=== PATIENT | female | born 1965 | race Caucasian/White ===

== ENCOUNTER → 2018-03-01 07:27 | Outpatient (CLI) | payer OTHER, SELFPAY ==
[2018-03-01 08:46] LABS: Alanine Aminotransferase 85 IU/L (9-52); Albumin 3.9 g/dL (3.5-5.0); Albumin Globulin Ratio 1.3 (1.0-2.8); Alkaline Phosphatase 261 U/L (38-126); Aspartate Aminotransferase 68 IU/L (14-36); Bilirubin Unconjugated 0.7 mg/dL (0.0-1.1); HEMOLYSIS 24 (0-50); Total Protein 6.9 g/dL (6.3-8.2)
== END ==
PROVIDERS: Visit Provider Internal Medicine Gastroenterology
DX: K74.3 Primary biliary cirrhosis (principal)
CPT/HCPCS: 36415; 80076

== ENCOUNTER → 2018-08-02 07:13 | Outpatient (CLI) | payer OTHER, SELFPAY ==
[2018-08-02 09:50] LABS: INR 0.9 (0.9-1.3)
== END ==
PROVIDERS: Visit Provider Internal Medicine Gastroenterology
DX: K74.3 Primary biliary cirrhosis (principal)
CPT/HCPCS: 36415; 85610

== ENCOUNTER → 2018-08-19 07:00 | Outpatient (CLI) | payer OTHER, SELFPAY ==
--- NOTE | 2018-08-19 | DI.US.S_ITS ---
PROCEDURE: US ABDOMEN COMPLETE INDICATIONS: PRIMARY BILIARY CIRRHOSIS TECHNIQUE: Real-time scanning was performed of the abdominal and retroperitoneal organs, with image documentation. COMPARISON: [facility], CT, ABDOMEN W&WO CONTRAST, 05/29/2013, 16:22. [facility], US, ABDOMEN COMPLETE, 12/25/2016, 8:00. FINDINGS: Liver: Coarse echotexture of the liver redemonstrated. No discrete focal mass. Gallbladder: No gallstones identified. Normal gallbladder wall. No pericholecystic fluid. Negative sonographic Burr sign. Biliary ducts: Intrahepatic bile ducts are non-dilated. Extrahepatic bile duct caliber measures 10.0 mm. Normal is 6-7 mm or less in diameter, or 10 mm or less post-cholecystectomy. Pancreas: Visualized portions of the pancreas are sonographically normal. Spleen: Spleen is normal in size and homogeneous in echotexture. Kidneys: Kidneys are normal in size and echotexture. Right kidney measures 10.0 cm long; left kidney measures 11.3 cm long. No hydronephrosis or nephrolithiasis. No solid masses. Aorta: Visualized aorta is normal in caliber at less than 3 cm. Iliacs: Proximal common iliac arteries are normal in caliber at less than 2.5 cm. IVC: Intrahepatic inferior vena cava is patent. Miscellaneous: No free abdominal fluid. IMPRESSION: 1. Coarse appearance of the liver echotexture similar to prior examination. No focal liver mass seen. Dictated by: Farooq CARR Interpreted: Jackson Cuab MD on 08/19/2018 at 8:56 Approved by: Jackson Cuba M.D. on 08/19/2018 at 10:57
== END ==
PROVIDERS: Visit Provider Internal Medicine Gastroenterology
DX: K74.60 Unspecified cirrhosis of liver (principal)
CPT/HCPCS: 76700

== ENCOUNTER 2018-09-06 09:09 | Day surgery (SDC) | payer OTHER, SELFPAY ==
[2018-09-06] VITALS (17 sets, daily range): BP systolic 93–140; BP diastolic 60–81; PULSE 64–83; RESP 12–16; TEMP 36.2–36.9; O2SAT 96–100; BMI 23.6
--- NOTE | 2018-09-06 | DI.CT.S_ITS ---
PROCEDURE: CT BIOPSY LIVER Sedation analgesia for 15 minutes. INDICATIONS: Hepatitis TECHNIQUE: The indications, alternatives, benefits, risks, and possible complications of the procedure were communicated to the patient. Informed written consent from the patient was obtained and placed in the chart. Continuous EKG and hemodynamic monitoring was started by trained personnel. The patient was brought to the CT suite and color worker spiral CT imaging was performed with localization grid. The appropriate site for percutaneous access to the biopsy target was marked, was prepped and draped sterilely, and was infused with local anaesthesia. Under CT guidance, a core biopsy trocar and needle set was advanced to the biopsy target, and specimen(s) were obtained. The trocar and needle were then removed, and the patient was sent for post-procedure monitoring. COMPARISON: None. FINDINGS: Biopsy site: Right lobe Needle: 20 gauge biopsy needle with introducer trocar. Number of passes: 3 Medications: 1% lidocaine for local anaesthesia. IV Fentanyl and Versed for conscious sedation for 15 minutes (see nursing record). Complications: None. IMPRESSION: Successful CT-guided biopsy of right hepatic lobe. Dictated by: Williams Wayne M.D. on 09/06/2018 at 13:59 Approved by: Williams Wayne M.D. on 09/06/2018 at 14:04
--- NOTE | 2018-09-06 | PATH_ITS ---
[facility] Accession Number: [id number] . 01 Material submitted: . LIVER . 01 Clinical history: . CT GUIDED NEEDLE CORE BIOPSY X3 RIGHT HEPATIC LOBE FOR CIRRHOSIS (NO MASS) . 02 Diagnosis: Liver, Needle Core Biopsy: Liver with patchy mild portal inflammation. Bile ducts present in 1 of 4 intact portal tracts; see Comment. At most fibrous portal expansion of portal tract on trichrome stain; no evidence or cirrhosis. [facility]09/13/2018 . 02 Comment: Sections are of liver with patchy mild portal inflammation consisting of lymphocytes and scattered plasma cells; there is no significant interface activity. Bile ducts are present in 1 of 4 intact portal tracts seen and focal bile ductular reaction is present. There is no lobular inflammation, and hepatocytes are unremarkable. There is no significant steatosis. There is at most fibrous portal expansion of portal tracts on trichrome stain, without evidence of cirrhosis. A reticulin stain highlights the preserved reticulin meshwork, with unremarkable trabeculae. There are no large intrahepatocytic globules of alpha-1 antitrypsin deficiency on a PAS stain with diastase. There is 1+ intrahepatocytic iron on iron stain. . Per report (slides not reviewed), a prvious liver biopsy showed very similar features ([id number], 06/30/2013; [facility], [place], [place]). Apart from ductopenia, the overall features are mild and non-specific and raise a wide differential diagnosis, including infection and drug-induced injury. The history of positive anti-mithochondrial antibodies, and clinical impression of primary biliary cirrhosis/choangitis is noted, and these features are certainly compatible with PBC if other etiologies are excluded. If PBC is clinically favored, these features are best classified as stage 2. It would appear that there has not been significant progession since the prior biopsy. . As part of routine qulity assurance, Dr. Marroquin has reviewed this case and agrees with the above interpretation. . 02 Electronically signed: . Azar Herndon MD, PhD, Pathologist NPI- [id number] . 01 Gross description: . Received in one formalin-filled container labeled with the patient's name and designated hepatic lobe, are three 0.1 cm in diameter, rizo-brewer, fragmenting, cylindrical-shaped portions of tissue which range in length from 1.0 cm to 1.6 cm. Entirely submitted in one cassette. ([id number]) /FRR . 02 Pathologist provided ICD-10: R94.5 . 02 CPT . 149905, 217936, 867052, 667369, [id number] Performed at: 01 [facility] [address] [id number] MD Maco Philippe MD Phone: [phone] Performed at: 02 [facility] [address] [place] [id number] MD Kim Marroquin MD Phone: [phone]
[2018-09-06 10:11] LABS: Hematocrit 45.6 % (36-46)
[2018-09-06 10:32] LABS: Platelet Count 116 X10^3/uL (150-400)
[2018-09-06 10:41] LABS: INR 0.9 (0.9-1.3); Prothrombin Time 10.9 SECONDS (10.1-12.7)
[2018-09-06 10:49] LABS: PTT Partial Thromboplastin Tim 33 SECONDS (26.4-36.2)
[2018-09-06] MEDS: MIDAZOLAM 2 MG/2 ML VIAL IV (11:20)
[2018-09-06] MEDS: fentaNYL 100 MCG/2 ML INJ 50 MCG IV ×2 (11:20→11:45)
[2018-09-06] MEDS: diphenhydrAMINE 50 MG/ML VIAL 25 MG IV (12:00)
--- NOTE | 2018-09-06 13:04 | SUR.PHASEII ---
pt resting quietly, lying on right side as ordered, bx site clean and dry, no redness or swelling noted.
--- NOTE | 2018-09-06 14:17 | SUR.PHASEII ---
Pt informed of lab draw at 1500 and orthstatic VS at 1530. Pt resting comfortably and drinking clears. Dressing c/d/i. Pain resolved. Report to John Guadalupe
--- NOTE | 2018-09-06 15:15 | SUR.PHASEII ---
DRESSING REMAINS DRY, NO SWELLING OR REDNESS NOTED, PT DENIES ANY PAIN AT SITE, LAB HERE FOR ORDERED STAT HCT. PT SITTING UP TOLERATING HOT TEA.
[2018-09-06 15:24] LABS: Hematocrit 44.6 % (36-46)
--- NOTE | 2018-09-06 15:40 | SUR.PHASEII ---
DR JUAREZ ([id number]) CALLED AND NOTIFIED OF STABLE VITAL SIGNS, NO BLEEDING AT SITE AND PT DENIES ANY PAIN, OK TO D/C PT HOME. LYING BP 105/79, PULSE 77 PULSE OX 97% SITTING BP 111/81 PULSE 88, PULSE OX 98% STANDING BP 108/80, PULSE 83, PULSE OX 98 %. D/C INSTRUCTIONS REVIEWED WITH PT WITH VERBALIZED UNDERSTANDING. PER DR JUAREZ, KEEP BAND AID ON SITE X2 DAYS OK TO SHOWER TOMORROW, CALL DR WITH S/S OF INFECTION, BLEEDING OR HEMATOMA.
== END 2018-09-06 17:23 | disposition home or self-care (01) ==
PROVIDERS: Radiology Diagnostic Radiology; Visit Provider Internal Medicine Gastroenterology
PROC: BF25ZZZ Computerized Tomography (CT Scan) of Liver (ICD-10-PCS; CPT 47000; principal; 2018-09-06 10:30)
DX: K74.3 Primary biliary cirrhosis (principal)
CPT/HCPCS: 47000; 77012; 85014; 85049; 85610; 85730; J1200; J2250; J3010

== ENCOUNTER → 2018-11-15 08:01 | Outpatient (CLI) | payer OTHER, SELFPAY ==
--- NOTE | 2018-11-15 | DI.MG.S_ITS ---
BILATERAL DIGITAL SCREENING MAMMOGRAM 3D/2D WITH CAD: 11/15/2018 CLINICAL: Routine screening. Comparison is made to exams dated: 10/25/2016 mammogram - [facility] and 06/13/2013 mammogram - [facility]. The tissue of both breasts is heterogeneously dense. This may lower the sensitivity of mammography. Current study was also evaluated with a Computer Aided Detection (CAD) system. No significant masses, calcifications, or other findings are seen in either breast. There has been no significant interval change. IMPRESSION: NEGATIVE There is no mammographic evidence of malignancy. A 1 year screening mammogram is recommended. This exam was interpreted at Station ID: [id number]. NOTE: For mammograms, a report in lay terms will be sent to the patient. Approximately 15% of breast malignancies will not be visualized mammographically. In the management of a palpable breast mass, a negative mammogram must not discourage biopsy of a clinically suspicious lesion. Electronically Signed By: Sole bliss/so:11/15/2018 11:19:41 letter sent: Normal Exam ACR BI-RADS Category 1: Negative [id number]
== END ==
PROVIDERS: Visit Provider Physician Assistant
DX: Z12.31 Encounter for screening mammogram for malignant neoplasm of breast (principal)
CPT/HCPCS: 77063; 77067

== ENCOUNTER 2019-11-05 20:36 | Emergency (ER) | payer OTHER, SELFPAY ==
[2019-11-05] VITALS (10 sets, daily range): BP systolic 119–138; BP diastolic 73–96; PULSE 67–78; RESP 18–24; TEMP 36.6–36.8; O2SAT 95–100
--- NOTE | 2019-11-05 20:43 | DI.RAD.S_ITS ---
PROCEDURE: XR WRIST RT MIN 3V INDICATIONS: fall with obvious deformity TECHNIQUE: 4 views of the wrist were acquired. COMPARISON: None. FINDINGS: Bones: There is an impacted, mildly displaced comminuted fracture of the distal radius with intra-articular extension. Ulna appears intact. No other areas of fracture are identified. Scaphoid view: No visualized fracture. Soft tissues: No suspicious soft tissue calcifications. IMPRESSION: Impacted, mildly displaced intra-articular distal radial fracture. Dictated by: Gloria Acharya M.D. on 11/05/2019 at 20:58 Approved by: Gloria Acharya M.D. on 11/05/2019 at 21:00
--- NOTE | 2019-11-05 20:46 | ED.UPPEXIN ---
HPI - Extremity Injury (Upper) General Chief Complaint: Extremity Injury, Upper Stated Complaint: WRIST INJURY Time Seen by Provider: 11/05/19 20:38 Source: patient and family Mode of arrival: Ambulatory Limitations: no limitations History of Present Illness HPI narrative: 54-year-old female nonsmoker with noncontributory medical history presents with a family friend and a chief complaint of significant right wrist pain with obvious deformity. She was dancing with a friend when she fell on an outstretched wrist, she felt a pop and now has significant pain, at rest and much worse with any range of motion. She denies any numbness, tingling or weakness. She states elbow and shoulder are not painful. She denies any head neck or back pain. She states that she fell because she tripped over her dance partners feet. complaint: injury to: right Onset (ago): minute(s) Handedness: right Place: home Severity: moderate Relieving factors: rest Exacerbating factors: immobilization Context: fall Associated symptoms: denies other symptoms Related Data Home Medications Medication Instructions Recorded Confirmed ibuprofen See Rx Instructions .ROUTE 09/29/16 09/06/18 .COMPLEX #0 ursodiol 800 mg PO QDAY #0 02/07/17 09/06/18 Previous Rx's Medication Instructions Recorded hydrocodone-acetaminophen 1 tab PO Q4-6H PRN #20 tab 11/05/19 Allergies Allergy/AdvReac Type Severity Reaction Status Date / Time No Known Allergies Allergy Verified 11/05/19 21:02 Review of Systems Constitutional Constitutional: Denies chills, Denies fatigue, Denies fever(s), Denies frequent falls, Denies lethargy and Denies weakness Eyes Eyes: Denies change in vision, Denies eye discharge, Denies irritation and Denies loss of vision ENT Ears, Nose, Mouth, and Throat: Denies change in voice, Denies dizziness, Denies neck pain, Denies sore throat and Denies throat swelling Cardiovascular Cardiovascular: Denies chest pain, Denies irregular heart rhythm, Denies lightheadedness, Denies palpitations, Denies dyspnea, Denies dyspnea on exertion and Denies orthopnea Respiratory Respiratory: Denies cough, Denies dyspnea, Denies dyspnea on exertion and Denies wheezing Gastrointestinal Gastrointestinal: Denies abdominal pain, Denies change in bowel habits, Denies diarrhea, Denies nausea and Denies vomiting Genitourinary Genitourinary: Denies hematuria, Denies flank pain, Denies urinary incontinence and Denies urinary urgency Musculoskeletal Musculoskeletal: Denies back pain, Reports joint swelling, Reports limited range of motion, Denies muscle weakness, Denies neck pain, Denies numbness and Denies tingling Integumentary/Breasts Skin/Breast: Denies pruritus, Denies erythema, Denies rash and Denies wounds Neurologic Neurologic: Denies behavioral changes, Denies confusion, Denies dizziness, Denies frequent falls, Denies loss of vision, Denies numbness, Denies tingling and Denies weakness Psychiatric Psychiatric: Denies anxiety, Denies behavioral changes, Denies confusion, Denies depression, Denies homicidal ideation and Denies suicidal ideation Endocrine Endocrine: Denies fatigue, Denies flushing and Denies palpitations Hematologic/Lymphatic Hematologic/Lymphatic: Denies easy bruising Allergic/Immunologic Allergic/Immunologic: Denies urticaria, Denies throat swelling and Denies wheezing Patient History Social History household members: none Smoking Status: Former smoker Exam Narrative Exam Narrative: GENERAL: [54] year old patient appears stated age. Well-nourished, well-developed patient, in mild distress. Tearful, holding right wrist HEAD: Atraumatic. Normocephalic. EYES: Pupils equal round and reactive. Extraocular motions intact. No scleral icterus. No injection or drainage. ENT: Nose without bleeding, purulent drainage. Throat without erythema, tonsillar hypertrophy or exudate. Airway patent. NECK: Trachea midline. Non tender CARDIOVASCULAR: Regular rate and rhythm without murmurs, gallops, or rubs. RESPIRATORY: Clear to auscultation. Breath sounds equal bilaterally. No wheezes, rales, or rhonchi. GASTROINTESTINAL: Abdomen soft, non-tender, nondistended. EXTREMITIES: Obvious deformity to right wrist, closed, isolated and neurovascularly intact. BACK: Nontender without deformity or crepitance. No flank tenderness. NEURO: AOx3. SKIN: No rash or erythema of visible areas Initial Vital Signs Initial Vital Signs: Vital Signs Temperature 97.9 F 11/05/19 20:45 Pulse Rate 76 11/05/19 20:45 Respiratory Rate 20 11/05/19 20:45 Blood Pressure 132/87 11/05/19 20:45 Pulse Oximetry 96 11/05/19 20:45 Procedures Orthopedic Fracture Reduction Fracture #1: Time Out Performed: Yes Side: right Fracture Reduction Location: radius Analgesia: procedural sedation Technique: direct manipulation and traction/counter-traction Post Reduction X-rays Demonstrate: anatomical reduction Post-reduction neuro exam: intact Post-reduction vascular exam: intact Splint Applied: Yes Patient Tolerated Procedure: Well Orthopedic Splinting/Casting Injury #1: Side: right Upper Extremity Injury Location: wrist Upper Extremity Immobilizer: sling/shoulder immobilizer and sugar tong splint Post splinting neuro exam: intact Post splinting vascular exam: intact Placed by: Provider Procedural Sedation Consent signed: Yes Time out performed: Yes Indication: fracture/dislocation reduction ASA Class: II Mallampati Airway Classification: Class II Time of Last PO Intake: 20:00 Preparation: monitor technician applied, pulse oximeter, capnometry used, supplemental O2 applied, suction/airway equipment at bedside and IV secured IV Propofol dose (mg): 100 Intraservice time/total sedation time (min): 10 ED Sedation Level: Moderate (Concious) Patient Tolerated Procedure: Well Course Orders Ordered: ED Orders 11/05/19 20:43 XR wrist RT min 3V Stat 11/05/19 21:32 XR wrist RT 2V Stat Discontinued Medications Hydrocodone Bitart/Acetaminophen (Vicodin 5/325 Prepack) 1 bottle MISC SEEINSTR ONE Stop: 11/05/19 21:54 Last Admin: 11/05/19 22:06 Dose: 1 bottle Documented by: TOMAS Propofol (Diprivan) 70 mg 1 mg/kg (70 mg) IV NOW ONE Stop: 11/05/19 21:00 Last Admin: 11/05/19 21:25 Dose: 70 mg Documented by: TOMAS Consultations Consultation #1: orthopedics consulted (Henrique). We have discussed case, she has reviewed imaging and is in agreement with plan to DC with splint, pain meds, and follow up instructions for [facility]. Vital Signs Vital signs: Vital Signs - 8 hr 11/05/19 20:45 11/05/19 21:23 11/05/19 21:29 Temperature 97.9 F 98.2 F Pulse Rate 76 67 78 Pulse Rate [Right Radial] Respiratory Rate 20 19 24 Blood Pressure 132/87 Blood Pressure [Left Arm] 125/86 136/90 Pulse Oximetry 96 100 98 11/05/19 21:34 11/05/19 21:37 11/05/19 21:39 Temperature Pulse Rate 75 71 Pulse Rate [Right Radial] 73 Respiratory Rate 18 24 Blood Pressure Blood Pressure [Left Arm] 138/96 H Pulse Oximetry 100 99 11/05/19 21:44 11/05/19 21:50 11/05/19 21:56 Temperature Pulse Rate 72 71 69 Pulse Rate [Right Radial] Respiratory Rate 23 19 19 Blood Pressure Blood Pressure [Left Arm] 119/73 124/85 126/87 Pulse Oximetry 100 95 99 11/05/19 21:57 Temperature Pulse Rate Pulse Rate [Right Radial] Respiratory Rate Blood Pressure Blood Pressure [Left Arm] 124/77 Pulse Oximetry MDM - Extremity Injury (Upper) Lab Data Labs: Point of Care Testing Test Results Not applicable Imaging Data Extremity x-ray #1: Radiologist's Impression: [address] [address] XRay Report Signed Patient: Bessie Hernandez [facility]#: [id number] : 1965Acct:[id number] Age/Sex: 54 / FDate of Service: 11/05/19 Loc: ED Accession Number: [id number] Procedure: XR wrist RT min 3V Ordering Provider: Jovani Villalpando D.O. PROCEDURE: XR WRIST RT MIN 3V INDICATIONS: fall with obvious deformity TECHNIQUE: 4 views of the wrist were acquired. COMPARISON: None. FINDINGS: Bones: There is an impacted, mildly displaced comminuted fracture of the distal radius with intra-articular extension. Ulna appears intact. No other areas of fracture are identified. Scaphoid view: No visualized fracture. Soft tissues: No suspicious soft tissue calcifications. IMPRESSION: Impacted, mildly displaced intra-articular distal radial fracture. Dictated by: Gloria Acharya M.D. on 11/05/2019 at 20:58 Approved by: Gloria Acharya M.D. on 11/05/2019 at 21:00 Discharge Plan Departure Patient Disposition: Home Clinical Impression: Distal radius fracture, right Qualifiers: Encounter type: initial encounter Fracture type: closed Fracture morphology: unspecified fracture morphology Qualified Code(s): S52.501A - Unspecified fracture of the lower end of right radius, initial encounter for closed fracture Discharge Date/Time: 11/05/19 22:20 Instructions: DI for Wrist Fracture Activity Restrictions/Additional Instructions: *You have been diagnosed with [right distal radius fracture] *What to do: *Take medications as directed *Follow up with [facility], call tomorrow morning for an appointment. Let them know you were seen in the Emergency Department and that we ask that you be seen in follow up *Return to ER if you should have any new, worsening or concerning symptoms, such as [increasing pain, numbness, tingling or weakness of your fingers hand or arm.] Splint Care: Keep splint clean and dry. Elevated affected body part to decrease swelling. OK to use ice pack on the affected body part. Use for 15-20 minutes each time, for 5-6x per day. If you develop worsening pain, numbness, tingling, discoloration of the affected body part, loosen the splint by loosening the REID wrap, and either see your doctor for an urgent re-assessment, or return to the Emergency Department. Return to the Emergency Department for any new or worsening symptoms. Prescriptions: New hydrocodone-acetaminophen 5-325 mg tablet 1 tab PO Q4-6H PRN (Reason: pain) Qty: 20 RF: 0 No Action ibuprofen 200 mg Tablet See Rx Instructions .ROUTE .COMPLEX Qty: 0 RF: 0 ursodiol 500 MG tablet 800 mg PO QDAY Qty: 0 RF: 0 Referrals: Yi Duenas MD [Physician] -
[2019-11-05] MEDS: propofoL 200 MG/20 ML VIAL 70 MG IV (21:25)
--- NOTE | 2019-11-05 21:32 | DI.RAD.S_ITS ---
PROCEDURE: XR WRIST RT 2V INDICATIONS: post-reduction TECHNIQUE: 2 views of the wrist were acquired. COMPARISON: [facility], , XR WRIST RT MIN 3V, 11/05/2019, 20:43. FINDINGS: Bones: There has been interval reduction of previous distal radial fracture. There is improved anatomic alignment. Intra-articular extension is again noted. Scaphoid view: Not obtained. Soft tissues: No suspicious soft tissue calcifications. IMPRESSION: Reduction with improved anatomic alignment of intra-articular distal radial fracture. Dictated by: Gloria Acharya M.D. on 11/05/2019 at 22:00 Approved by: Gloria Acharya M.D. on 11/05/2019 at 22:01
[2019-11-05] MEDS: HYDROCODONE/ACET 5/325 PREPACK 1 BOTTLE MISC (22:06)
== END 2019-11-05 22:20 | disposition home or self-care (01) ==
PROVIDERS: Emergency Provider Emergency Medicine
DX: S52.501A Unspecified fracture of the lower end of right radius, initial encounter for closed fracture (principal); W01.0XXA Fall on same level from slipping, tripping and stumbling without subsequent striking against object, initial encounter
CPT/HCPCS: 25565; 73100; 73110; 99152; 99284; 99285; J2704

== ENCOUNTER 2019-11-07 10:21 | Day surgery (SDC) | payer OTHER, SELFPAY ==
[2019-11-07] VITALS (14 sets, daily range): BP systolic 111–142; BP diastolic 72–90; PULSE 64–99; RESP 10–16; TEMP 36.1–37.1; O2SAT 90–97; BMI 23.6
[2019-11-07] MEDS: LACTATED RINGERS 1,000 ML 42 ML IV ×2 (10:48→15:26)
--- NOTE | 2019-11-07 12:40 | PM.PREOP ---
Pre-operative Note Interval Note History & Physical reviewed/Exam performed by Physician: Yes Changes to H&P: No
--- NOTE | 2019-11-07 12:48 | PM.OP.1 ---
Operative Date/Time/Diagnoses Date of procedure: 11/07/19 Time of procedure: 13:20 Pre-op diagnosis: Right distal radius fracture intra-articular Post-op diagnosis: same Procedure & Clinicians Procedure: Open reduction internal fixation intra-articular distal radius fracture right to fragment. CPT code 37326 Same procedure as scheduled: Yes Indications: Patient is a 54-year-old [id number] female that fell on outstretched hand 2 days prior. He had immediate pain deformity. She was found have a comminuted intra-articular distal radius fracture. She works for herself and in order to restore volar angulation alignment reduce the risk of posttraumatic arthritis and facilitate early range of motion she was indicated for open reduction internal fixation. The risks and benefits of the procedure have been discussed with the patient even opportunity to ask questions. The risks of surgery include but are not limited to infection, malunion, nonunion, persistence of pain, damage to nerves and blood vessels, posttraumatic arthritis, DVT, PE, cardiopulmonary complications and . The patient expressed a thorough understanding of the risks and benefits of surgery and has elected to proceed. Consent was signed in the office. Surgeon: Yi Duenas Click Yes if Unassisted: Yes Anesthesia Type: General, Peripheral nerve block and Local Operative Notes Findings: Displaced intra-articular distal radius fracture Closure Type: primary Specimen(s): none sent Prosthetic devices, grafts, tissues, transplants, or devices: Acumed volar locking distal radius plate, right Applied: other (Volar splint) Estimated Blood Loss (mL): 10 Blood products transfused: none Tourniquet time (min): 50 Procedure in detail: Patient sustained a displaced distal radius fracture was indicated for operative reduction fixation to prevent malunion and prolonged function, loss of motion, wrist arthritis. The risks benefits and alternatives to procedure were discussed at length with the patient expressed understanding. These included but were not limited to bleeding, infection, damage to nerves, prominent hardware, pain, malunion, nonunion, blood clot, pulmonary embolism, and cardiovascular risk associated with general anesthesia. Consent was signed in the office. The patient was seen in the site of surgery was marked in the preoperative area. The patient was then brought to the operating room placed on the operative table in the supine position. Hand table was placed on the operative side. General anesthesia was administered. SCDs were 1 the legs and all bony prominence were padded. A well-padded radial keel tourniquet was placed. A formal time-out procedure was called confirming the patient's side and site of surgery administration of preoperative antibiotics and presence of consent. All agreed. The operative extremity was prepped and draped in the standard sterile fashion. An Esmarch was used for exsanguination and the brachial tourniquet was raised to 250 mm of mercury. Standard FCR approach to the wrist was drawn in the incision made. The FCR was exposed. The sheath was opened and the tendon was retracted ulnar protect the palmar cutaneous branch of the median nerve. Floor of the FCR was opened to expose the deep muscles. The FPL was retracted ulnar and the pronator quadratus was released from the radial border and reflected ulnar to expose the distal radius and distal fracture. Fracture was disimpacted and clean. The fracture was reduced with traction flexion ulnar deviation. A 054 K-wire was advanced percutaneously from the radial styloid to the metaphysis to hold the reduction. Reduction was checked fluoroscopy and radial inclination tilt was recreated. Three hole standard Accu Med to volar locking plate was selected and positioned and provisionally fixed with K-wires. Once this was satisfactory, nonlocking 3 5 screws placed in the oblong hole and secured. Distal screws were then placed 1st with nonlocking screws followed by locking pegs. These were placed carefully not to penetrate the dorsal cortex. Once this was completed and checked for prominence the final shaft screws were placed. Again with care to avoid prominence. Final intraoperative images were obtained reviewed demonstrating no evidence of hardware prominence. Wrist motion was checked and was full and maintained and stable DRUJ. The wound was then irrigated and closed in layers. Hemostasis was achieved and the tourniquet was released prior to closing. Three 0 Vicryl was used deep and subcutaneous and 3 O nylon in the skin. Sterile dressings with a volar splint were applied. There no immediate complications. Surgical counts were correct. The patient tolerated the procedure well was taken recovery room. Complications: none Post-operative Condition: stable Disposition: PACU Plan for aftercare: 2 lb weight limit. May type or use hand for ADLs. Keep the splint in place. Follow-up in 2 weeks for suture removal. Then initiate hand therapy. Continue to 2-5 lb weight limit through 9 weeks postop then may strengthen as tolerated.
[2019-11-07] MEDS: CEFAZOLIN 2 GM/100 ML FROZ.PIGGY IV (13:08)
--- NOTE | 2019-11-07 13:47 | SUR.OPER ---
Supine on padded OR bed, head on pillow, left arm secured on padded arm board at <90 degrees abduction, Right arm positioned on padded arm table, legs uncrossed, safety belt at thigh, pillow under knees, gel pad to heels.
[2019-11-07] MEDS: BUPIVACAINE 0.25% W/ EPI 30 ML VIAL INJ (14:01)
[2019-11-07] MEDS: fentaNYL 100 MCG/2 ML INJ IV ×2 (15:04→15:17)
[2019-11-07] MEDS: HYDROMORPHONE 2 MG INJ IV ×3 (15:07→15:44)
[2019-11-07] MEDS: ONDANSETRON 4 MG/2 ML INJ IV ×2 (15:10→15:48)
[2019-11-07] MEDS: OXYCODONE/ACETAMINOPHEN 5/325 TABLET 1 TAB PO (15:29)
--- NOTE | 2019-11-07 16:10 | SUR.PHASEI ---
Patient states that her pain is down from 10/10 to 8/10. Patient c/o being hot. VSS. Mild nausea. Cool cloth to forehead and back of neck. Patient denies diabetes but blood sugar check 106 at this time. Removed some blankets for comfort and removed SCDs to cool patient off.
--- NOTE | 2019-11-07 16:19 | SUR.PHASEI ---
Patient states pain is still 8/10 but does not want any more pain medication at this time.
--- NOTE | 2019-11-07 16:44 | SUR.PHASEII ---
pt arrived to phase II via stretcher. pt sitting up, alert and oriented. pt significant other brought to bedside. Reviewed dc instructions with pt and pt significant. No further questions or concerns. pt c/o nausea when arrived to phase II. pt vomitted approx 100 cc of bile colored emesis. pt reported after emesis, she feels better. pt requesting to rest longer prior to dc. bed in lowest position and call light given to pt. pt appears comfortable at this time.
--- NOTE | 2019-11-07 17:27 | SUR.PHASEII ---
Patient with emesis prior to discharge but ready to go home. RX given to family prior to discharge. Instructed patient to take pain medication as directed but to attempt a small amount of food first. Escorted patient to car via wheelchair.
== END 2019-11-07 17:30 | disposition home or self-care (01) ==
PROVIDERS: Referring Provider Orthopaedic Surgery Foot and Ankle Surgery; Visit Provider Orthopaedic Surgery Foot and Ankle Surgery
PROC: (CPT 25608; principal; 2019-11-07 12:00)
DX: S52.571A Other intraarticular fracture of lower end of right radius, initial encounter for closed fracture (principal); K74.3 Primary biliary cirrhosis; W01.0XXA Fall on same level from slipping, tripping and stumbling without subsequent striking against object, initial encounter; Y93.41 Activity, dancing
CPT/HCPCS: 25608; J0690; J1100; J1170; J1885; J2250; J2405; J2704; J3010

== ENCOUNTER → 2020-04-14 07:38 | Outpatient (CLI) | payer OTHER, SELFPAY ==
--- NOTE | 2020-04-14 | DI.RAD.S_ITS ---
PROCEDURE: FL WRIST INJECTION MR/CT RT INDICATIONS: R/O SL ligament tear TECHNIQUE: After informed consent had been obtained, the wrist was examined fluoroscopically, and a site chosen for injection of the radiocarpal compartment from a dorsal approach. Skin was prepped and draped in a sterile fashion and 1% lidocaine infiltrated from the skin down to the articular surface. A hypodermic needle was then introduced into the articular space and a modest amount of contrast medium was instilled confirming intra-articular needle tip placement. This was followed by approximately 4 mL of a dilute gadolinium solution. Needle was removed and dressing was applied. The patient experienced no complications throughout the procedure and left the fluoroscopic suite in no apparent distress. FINDINGS: fluoroscopic spot image demonstrates intra-articular location to injected iodinated contrast. IMPRESSION: Successful fluoroscopic-guided administration of dilute Gadolinium solution for wrist MR arthrogram. Dictated by: Williams Wayne M.D. on 04/14/2020 at 10:35 Approved by: Williams Wayne M.D. on 04/14/2020 at 10:36
--- NOTE | 2020-04-14 | DI.MRI.S_ITS ---
PROCEDURE: MR WRIST RT W CON INDICATIONS: R/O SL ligament tear TECHNIQUE: After the administration of 3-4 mL of dilute intra-articular Gadolinium contrast into the radiocarpal compartment, coronal T1 spin echo with fat saturation and T2 fast spin echo with fat saturation, axial T1 spin echo and T2 fast spin echo with fat saturation, sagittal T1 spin echo with and without fat saturation through the wrist. COMPARISON: None. FINDINGS: Image quality: Suboptimal due to hardware artifact , and failure of fat suppression. Bones and cartilage: Fracture deformity of the distal radius, status post plate and screw fixation. No definite focal bone marrow edema . There is marked widening of the scapholunate interval measuring 8 mm, with heterogeneous amorphous signal changes present in the expected location of the scapholunate ligament, likely reflecting subacute or chronic tear with subsequent scarring. No definite gadolinium signal intensity seen within the midcarpal compartment. The lunotriquetral ligament appears grossly intact. There is irregular signal change at the site of the TFCC central disc and radial attachment in keeping with degenerative or posttraumatic tear. There is associated gadolinium signal intensity seen within the distal radioulnar joint. Diffuse carpal degenerative spurring and sclerosis. Partial-thickness loss of the proximal lunate articular cartilage, and distal ulnar cartilage. Areas of full-thickness articular cartilage loss seen at the radioscaphoid and radiolunate articulation. Tendons and soft tissues: The carpal tunnel structures appear normal, including the median nerve. The ulnar nerve appears normal within Guyon's canal. Extensor tendons appear grossly intact.. No soft tissue ganglion cysts. IMPRESSION: Postsurgical and degenerative changes as detailed above, with hardware susceptibility artifact due to distal radial plate and screw fixation. Widening of the scapholunate interval, with heterogeneous signal change in the region of the scapholunate ligament. 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 Of note, no definite gadolinium leakage into the midcarpal compartment probably related to subsequent scarring and fibrosis. TFCC tear at the central disc and radial attachment with associated gadolinium leakage into the distal radioulnar joint. Suboptimal evaluation due to hardware artifact however there is partial-thickness loss of the proximal lunate articular cartilage, and distal ulnar cartilage. Areas of full-thickness articular cartilage loss seen at the radioscaphoid and radiolunate articulation. Dictated by: Williams Wayne M.D. on 04/14/2020 at 9:18 Approved by: Williams Wayne M.D. on 04/14/2020 at 9:46
== END ==
PROVIDERS: Referring Provider Orthopaedic Surgery Foot and Ankle Surgery; Visit Provider Orthopaedic Surgery Foot and Ankle Surgery
DX: S52.571D Other intraarticular fracture of lower end of right radius, subsequent encounter for closed fracture with routine healing (principal); S63.591A Other specified sprain of right wrist, initial encounter
CPT/HCPCS: 20605; 73222; 77002

== ENCOUNTER → 2020-06-07 07:37 | Outpatient (CLI) | payer OTHER, SELFPAY ==
[2020-06-07 08:35] LABS: Add Manual Diff / Slide Review NO; Basophils Absolute Auto 0 /uL (0-100); Basophils Percent Auto 0.8 % (0-2); Eosinophils Absolute Auto 100 /uL (0-450); Eosinophils Percent Auto 2.3 % (2-4); Hematocrit 40.5 % (36-46); Hemoglobin 13.7 g/dL (12.0-16.0); Lymphocytes Absolute Auto 1000 /uL (1100-4500); Lymphocytes Percent Auto 27.6 % (25-40); Mean Corpuscular HGB Conc 33.9 % (30-36); Mean Corpuscular Hemoglobin 29.2 PG (26-34); Mean Corpuscular Volume 86.3 fL (80-100); Monocytes Absolute Auto 400 /uL (0-900); Monocytes Percent Auto 9.7 % (3-14); Neutrophils Absolute Auto 2200 /uL (1500-7000); Neutrophils Percent Auto 59.6 % (50-75); Platelet Count 100 X10^3/uL (150-400); Red Blood Cell Count 4.69 X10^6/uL (4.0-5.2); Red Cell Distribution Width 14.1 % (11.6-14.8); White Blood Cell Count 3.7 X10^3/uL (4.5-11.0)
[2020-06-07 08:56] LABS: Alanine Aminotransferase 83 IU/L (<35); Albumin Globulin Ratio 1.2 (1.0-2.8); Alkaline Phosphatase 263 U/L (38-126); Aspartate Aminotransferase 58 IU/L (14-36); Bilirubin Total 0.5 mg/dL (0.2-1.3); Bilirubin Unconjugated 0.4 mg/dL (0.0-1.1); Globulin 3.4 g/dL (1.7-4.1); HEMOLYSIS < 15 (0-50); Total Protein 7.4 g/dL (6.3-8.2)
== END ==
PROVIDERS: Referring Provider Internal Medicine Gastroenterology; Visit Provider Internal Medicine Gastroenterology
DX: K74.3 Primary biliary cirrhosis (principal)
CPT/HCPCS: 36415; 80076; 85025

== ENCOUNTER → 2020-07-12 13:17 | Outpatient (CLI) | payer OTHER, SELFPAY ==
[2020-07-12 14:36] LABS: COVID19 -Nasal RAPID Negative (Negative)
== END ==
PROVIDERS: Visit Provider Physician Assistant
DX: Z11.59 Encounter for screening for other viral diseases (principal)
CPT/HCPCS: 87635

== ENCOUNTER 2020-07-15 06:29 | Day surgery (SDC) | payer OTHER, SELFPAY ==
[2020-07-13 09:43] VITALS: BMI 24.9
[2020-07-15] VITALS (11 sets, daily range): BP systolic 101–128; BP diastolic 57–78; PULSE 67–107; RESP 11–21; TEMP 36.1–36.7; O2SAT 91–98; BMI 25.0
[2020-07-15] MEDS: LACTATED RINGERS 1,000 ML 42 ML IV ×2 (07:20→09:34)
[2020-07-15] MEDS: CEFAZOLIN 2 GM/100 ML FROZ.PIGGY IV (07:41)
--- NOTE | 2020-07-15 07:44 | PM.PREOP ---
Pre-operative Note COVID-19 COVID-19 status: Negative Result date/Date tested (Pos, Neg/Pending): 07/12/20 Interval Note History & Physical reviewed/Exam performed by Physician: Yes Changes to H&P: No
--- NOTE | 2020-07-15 08:16 | SUR.OPER ---
Supine on padded OR bed, head on pillow, left arm secured on padded arm boards at <90 degrees abduction,right arm draped free on black armtable, legs uncrossed, safety belt at thigh, tape over blanket over lower legs.
[2020-07-15] MEDS: BUPIVACAINE 0.5% W/ EPI (PF) 30 ML VIAL INJ (08:25)
--- NOTE | 2020-07-15 09:49 | PM.OP.1 ---
Operative Date/Time/Diagnoses Date of procedure: 07/15/20 Time of procedure: 08:00 Pre-op diagnosis: Right distal radius fracture status post open reduction internal fixation Right scapholunate ligament rupture Post-op diagnosis: same Procedure & Clinicians Procedure: Right scapholunate ligament reconstruction. Removal of right distal radius plate. Right wrist Flexor tendon tenolysis. Right capsular release wrist Same procedure as scheduled: Yes Indications: Patient is status post a fall resulting in a distal radius fracture as well as a scapholunate injury. Patient developed wrist stiffness and dysfunction due to the scapholunate rupture. Surgeon: Eren August [employer] Car Mechanic: Marleni Guerin Anesthesia Type: General Operative Notes Findings: Healed distal radius fracture. No sign of any intra-articular screws. Complete rupture of the scapholunate ligament with significant diastasis but no sign of any carpal collapse. No sign of any significant arthritic changes to the radiocarpal joint. Closure Type: primary Specimen(s): none sent Applied: implant(s) (Arthrex suture anchors x5. Single K-wire) Estimated Blood Loss (mL): 10 Blood products transfused: none Tourniquet time (min): 94 Procedure in detail: On date of service, patient was met in the holding area where his operative site was signed and witnessed by the OR staff. The surgery is once again discussed with the patient in remaining questions or concerns he had were answered fully. Patient was taken back to the operating theater and placed on the operating table in a supine position. Great care was taken to ensure that all bony prominences were appropriately padded. A well-padded tourniquet was placed up along the upper extremity. Time-out was performed verifying patient's name, procedure, and operative site. The limb was prepped and draped in the normal sterile fashion. An Esmarch was used to exsanguinate the limb the tourniquet was turned up to 250 mm of mercury. Longitudinal incision was made. The incision was ulnar to the Cesario's tubercle. It was centered over the radiocarpal joint. Fifteen blade was used to incise through skin and fascial tissue. Sharp dissection was continued with a 15 blade until the extensor mechanism was identified. Branches of the superficial radial nerve were identified and protected as well as branches coming off ulnarly. Once we had the extensor mechanism identified and was split allowing a release of the EPL tendon. This was also done ulnarly opening up 4th extensor compartment and then done radially opening up the 2nd extensor compartment. This allowed us to retract the extensor tendons. We next took a small strip of tendon tissue from the ECR be which was then whip stitched and then set aside to be used later. Next, the radiocarpal joint was opened preserving the carpal ligaments. This gave us good visualization of the scapholunate interval. There was a complete rupture to the scapholunate ligament. But no sign of any radiocarpal arthritic process. K-wire was placed in to the scaphoid and 1 into the lunate and the scapholunate interval was reduced. There was quite a bit of flexion of the scaphoid which was reduced as well as extension of the lunate. These 2 K-wires were then held together to close down any diastasis. Another K-wire was placed between the scaphoid and the capitate to keep it from falling back into flexion. Next, 3 guidewires were placed 1 in the lunate and 2 in the scaphoid 1 by the scapholunate interval and then 1 very distally. C-arm used to verify reduction of the scapholunate interval as well as guidewire positioning. Once we were satisfied with the positioning cannulated drill was used to drill over the 3 guidewires. The bony hole tunnels were then copiously irrigated removing any remaining tissue. We then turned our attention back to our tendon graft. This plus suture tape was tenodesed into the 1st hole in the scaphoid. Then under tension this was then placed into the 2nd hole into the lunate going across the scapholunate interval using the labral tape as well as the graft providing a solid repair of the scapholunate interval. Next, the tendon and suture material were then brought up to the distal hole into the scaphoid and tenodesed there to once again help keep the scaphoid from falling into flexion. C-arm was brought in to verify maintenance of reduction. The 2 reducing K-wires were removed and there was no gapping at the scapholunate interval once those K-wires were removed. We were able to flex and extend the wrist with no abnormal motion of the scapholunate interval been no sign of any diastasis. There was good tightness of the graft in the suture between the scapholunate interval but some loosening between the lunate and the distal scaphoid. Due to this fact it was felt that the repair needed to be reinforced. More proximally 2 additional drill holes were made 1 in the lunate 1 the scaphoid. And the labral tape was used to reinforce the scapholunate ligament resulting in continued closure of the scapholunate ligament. This provided Good signs of a solid repair of the scapholunate interval. The wound was then copiously irrigated. The capsule was closed and repaired using 3-0 FiberWire. The extensor mechanism was closed with Vicryl recreating the 4th extensor compartment as well as the 3rd and 2nd extensor compartments. The rest of the wound was closed in layered fashion. We then turned our attention to the distal radius fracture. Previous volar incision was reopened using a 15 blade. Fifteen blade was used to incise the skin and fascial tissue. Sharp dissection was continued until the FCR tendon identified. The floor of the FCR tendon was opened allowing us to retract the flexor tendons given his good visualization of plate. There was quite a bit of scarring of the flexor tendons to the plate. Due to this fact and extensive flexor tenolysis was performed freeing up flexor tendons from the plate as well as the surrounding tissue. Once the flexor tendons were completely free the screws in plate was then removed. This allowed us to remove the plate. Patient still is demonstrating stiffness in extension but had full motion in flexion. Slight partial capsular release was performed allowing us to improve the overall wrist extension. The wound was copiously irrigated then closed in a layered fashion. Patient's hand and arm was cleaned dried and dressed. Patient was placed into a splint and taken to the PACU in stable condition. Complications: none Post-operative Condition: stable Disposition: PACU Plan for aftercare: Patient will be immobilized for a total of 6 weeks. No restrictions of range of motion of the fingers.
[2020-07-15] MEDS: fentaNYL 100 MCG/2 ML INJ IV ×4 (09:57→10:25)
[2020-07-15] MEDS: OXYCODONE/ACETAMINOPHEN 5/325 TABLET 1 TAB PO (10:11)
[2020-07-15] MEDS: ONDANSETRON 4 MG/2 ML INJ IV ×2 (10:13→10:33)
== END 2020-07-15 11:48 | disposition home or self-care (01) ==
PROVIDERS: Referring Provider Orthopaedic Surgery; Visit Provider Orthopaedic Surgery
PROC: (CPT 25320; principal; 2020-07-15 07:45)
DX: M25.331 Other instability, right wrist (principal); S52.571D Other intraarticular fracture of lower end of right radius, subsequent encounter for closed fracture with routine healing; S63.591A Other specified sprain of right wrist, initial encounter; W19.XXXD Unspecified fall, subsequent encounter
CPT/HCPCS: 25320; 20680; 25295; J0690; J1100; J2250; J2405; J2704; J3010

== ENCOUNTER → 2020-10-22 08:35 | Outpatient (CLI) | payer OTHER, SELFPAY ==
[2020-10-22 09:57] LABS: Add Manual Diff / Slide Review NO; Basophils Absolute Auto 0 /uL (0-100); Basophils Percent Auto 1.1 % (0-2); Eosinophils Absolute Auto 100 /uL (0-450); Eosinophils Percent Auto 2.7 % (2-4); Hematocrit 41.4 % (36-46); Hemoglobin 14.1 g/dL (12.0-16.0); Lymphocytes Absolute Auto 1200 /uL (1100-4500); Lymphocytes Percent Auto 30.1 % (25-40); Mean Corpuscular Volume 85.4 fL (80-100); Monocytes Absolute Auto 400 /uL (0-900); Monocytes Percent Auto 9.1 % (3-14); Neutrophils Absolute Auto 2200 /uL (1500-7000); Platelet Count 103 X10^3/uL (150-400); Red Blood Cell Count 4.85 X10^6/uL (4.0-5.2); Red Cell Distribution Width 14.2 % (11.6-14.8); White Blood Cell Count 3.9 X10^3/uL (4.5-11.0)
[2020-10-22 10:08] LABS: Prothrombin Time 11.1 SECONDS (10.1-12.7)
[2020-10-22 10:49] LABS: Alanine Aminotransferase 76 IU/L (<35); Albumin 4.2 g/dL (3.5-5.0); Albumin Globulin Ratio 1.3 (1.0-2.8); Alkaline Phosphatase 311 U/L (38-126); Aspartate Aminotransferase 60 IU/L (14-36); BUN Creatinine Ratio 24.1 (6-22); Bilirubin Total 0.8 mg/dL (0.2-1.3); Blood Urea Nitrogen 13 mg/dL (7-17); Calcium 10.3 mg/dL (8.4-10.2); Carbon Dioxide 30 mmol/L (22-32); Chloride 102 mmol/L (98-107); Estimated Glomerular Filt Rate > 60.0 mL/min (>60); Gamma Glutamyl Transpeptidase 249 U/L (12-43); Globulin 3.3 g/dL (1.7-4.1); Glucose 101 mg/dL (70-100); HEMOLYSIS < 15 (0-50); Potassium 4.5 mmol/L (3.4-5.1); Sodium 135 mmol/L (137-145); Total Protein 7.5 g/dL (6.3-8.2)
[2020-10-24 16:13] LABS: Vitamin A 46.9 ug/dL (20.1-62.0)
== END ==
PROVIDERS: PCP Physician Assistant; Referring Provider Physician Assistant; Visit Provider Physician Assistant
DX: K74.3 Primary biliary cirrhosis (principal)
CPT/HCPCS: 36415; 80053; 81596; 82306; 82977; 84590; 85025; 85610

== ENCOUNTER → 2020-11-10 12:49 | Outpatient (CLI) | payer OTHER, SELFPAY ==
[2020-11-10] MEDS: COVID-19 VACC, Ad26(JANSSEN)/PF 0.5 ML IM (13:08)
== END ==
PROVIDERS: PCP Physician Assistant; Visit Provider Internal Medicine
DX: Z23 Encounter for immunization (principal)
CPT/HCPCS: 0031A; 91303

== ENCOUNTER → 2020-11-16 13:12 | Outpatient (CLI) | payer OTHER, SELFPAY ==
[2020-11-17 04:36] LABS: Hepatitis A Antibody Total Negative (Negative); Hepatitis B Surf AB Quant <3.1 mIU/mL (Immunity>9.9)
[2020-11-17 06:08] LABS: Hepatitis B Core Antibody Negative (Negative)
[2020-11-17 07:40] LABS: Alpha 1 Anti Trypsin 128 mg/dL (101-187)
[2020-11-17 10:09] LABS: Ceruloplasmin 28.7 mg/dL (19.0-39.0)
[2020-11-17 18:23] LABS: Hepatitis B Surface Antigen NEGATIVE s/c (NEGATIVE)
[2020-11-17 18:35] LABS: Hep C Virus Ab w/Reflex Quant NEGATIVE s/c (NEGATIVE)
[2020-11-18 14:08] LABS: ANA Screen, IFA Negative (.)
[2020-11-20 15:08] LABS: Smooth Muscle Antibody 14 Units (0-19)
== END ==
PROVIDERS: PCP Physician Assistant; Referring Provider Physician Assistant; Visit Provider Physician Assistant
DX: R74.8 Abnormal levels of other serum enzymes (principal); K74.3 Primary biliary cirrhosis
CPT/HCPCS: 36415; 82103; 82390; 83516; 86038; 86376; 86704; 86706; 86708; 86803; 87340

== ENCOUNTER → 2021-10-26 07:14 | Outpatient (CLI) | payer OTHER, SELFPAY ==
[2021-10-26 08:57] LABS: Add Manual Diff / Slide Review NO; Basophils Absolute Auto 0 /uL (0-100); Basophils Percent Auto 0.8 % (0-2); Eosinophils Absolute Auto 100 /uL (0-450); Eosinophils Percent Auto 2.4 % (2-4); Hematocrit 40.5 % (36-46); Hemoglobin 13.5 g/dL (12.0-16.0); Lymphocytes Absolute Auto 900 /uL (1100-4500); Mean Corpuscular HGB Conc 33.4 % (30-36); Mean Corpuscular Hemoglobin 28.7 PG (26-34); Monocytes Absolute Auto 400 /uL (0-900); Monocytes Percent Auto 9.9 % (3-14); Neutrophils Absolute Auto 2300 /uL (1500-7000); Neutrophils Percent Auto 61.9 % (50-75); Platelet Count 95 X10^3/uL (150-400); Red Blood Cell Count 4.71 X10^6/uL (4.0-5.2); Red Cell Distribution Width 14.1 % (11.6-14.8); White Blood Cell Count 3.7 X10^3/uL (4.5-11.0)
[2021-10-26 09:03] LABS: Alanine Aminotransferase 66 IU/L (<35); Albumin 4.1 g/dL (3.5-5.0); Albumin Globulin Ratio 1.1 (1.0-2.8); Alkaline Phosphatase 255 U/L (38-126); Aspartate Aminotransferase 67 IU/L (14-36); BUN Creatinine Ratio 17.1 (6-22); Bilirubin Total 1.2 mg/dL (0.2-1.3); Blood Urea Nitrogen 12 mg/dL (7-17); Calcium 9.8 mg/dL (8.4-10.2); Carbon Dioxide 27 mmol/L (22-32); Chloride 104 mmol/L (98-107); Estimated Glomerular Filt Rate > 60.0 mL/min (>60); Globulin 3.6 g/dL (1.7-4.1); Glucose 90 mg/dL (70-100); HEMOLYSIS < 15 (0-50); Potassium 3.9 mmol/L (3.4-5.1); Sodium 136 mmol/L (137-145); Total Protein 7.7 g/dL (6.3-8.2)
[2021-10-26 19:48] LABS: Hep C Virus Ab w/Reflex Quant NEGATIVE s/c (NEGATIVE)
== END ==
PROVIDERS: PCP Family Medicine; Referring Provider Family Medicine; Visit Provider Family Medicine
DX: R19.09 Other intra-abdominal and pelvic swelling, mass and lump (principal); D69.6 Thrombocytopenia, unspecified; R74.8 Abnormal levels of other serum enzymes; K76.9 Liver disease, unspecified
CPT/HCPCS: 36415; 80053; 85025; 86803

== ENCOUNTER 2022-03-16 08:21 | Emergency (ER) | payer OTHER, SELFPAY ==
[2022-03-16 08:24] VITALS: BP 115/78; PULSE 80; RESP 18; TEMP 35.8; O2SAT 94; BMI 24.3
== END 2022-03-16 08:30 | disposition left against medical advice (07) ==
LOC: ED 08:45
PROVIDERS: Emergency Provider Emergency Medicine; PCP Family Medicine
CPT/HCPCS: 99281

== ENCOUNTER → 2024-05-14 07:28 | Outpatient (CLI) | payer OTHER, SELFPAY ==
[2024-05-14 09:20] LABS: Hematocrit 40.5 % (36-46); Hemoglobin 13.7 g/dL (12.0-16.0); Mean Corpuscular HGB Conc 33.8 % (30-36); Mean Corpuscular Hemoglobin 29.8 PG (26-34); Mean Corpuscular Volume 88.4 fL (80-100); Platelet Count 96 X10^3/uL (150-400); Red Blood Cell Count 4.58 X10^6/uL (4.0-5.2); Red Cell Distribution Width 15.1 % (11.6-14.8); White Blood Cell Count 3.6 X10^3/uL (4.5-11.0)
[2024-05-14 09:38] LABS: Alanine Aminotransferase 156 IU/L (<35); Albumin Globulin Ratio 1.2 (1.0-2.8); Alkaline Phosphatase 669 U/L (38-126); Aspartate Aminotransferase 116 IU/L (14-36); Bilirubin Total 1.5 mg/dL (0.2-1.3); Blood Urea Nitrogen 13 mg/dL (7-17); Calcium 9.8 mg/dL (8.4-10.2); Carbon Dioxide 23 mmol/L (22-32); Chloride 105 mmol/L (98-107); Estimated Glomerular Filt Rate > 60 mL/min (>60); Globulin 3.4 g/dL (1.7-4.1); Glucose 87 mg/dL (80-110); HEMOLYSIS < 15 (0-50); Potassium 3.8 mmol/L (3.4-5.1); Sodium 136 mmol/L (137-145); Total Protein 7.4 g/dL (6.3-8.2)
== END ==
LOC: LAB 07:30
PROVIDERS: PCP Family Medicine; Referring Provider Family Medicine; Visit Provider Family Medicine
DX: K74.3 Primary biliary cirrhosis (principal)
CPT/HCPCS: 36415; 80053; 85027

== ENCOUNTER → 2024-05-15 07:04 | Outpatient (CLI) | payer OTHER, SELFPAY ==
[2024-05-15 07:57] LABS: Cholesterol 231 mg/dL (140-199); Triglycerides 44 mg/dL (35-150)
[2024-05-15 08:29] LABS: HDL Cholesterol 133 mg/dL (40-60); LDL Cholesterol Calculated 89 mg/dL (<100)
== END ==
PROVIDERS: PCP Family Medicine; Referring Provider Family Medicine; Visit Provider Family Medicine
DX: K74.3 Primary biliary cirrhosis (principal)
CPT/HCPCS: 36415; 80061

== ENCOUNTER → 2024-06-26 09:53 | Outpatient (CLI) | payer OTHER, SELFPAY ==
[2024-06-26 12:29] LABS: Cholesterol 244 mg/dL (140-199); Phosphorous 3.1 mg/dL (2.8-4.1); Triglycerides 43 mg/dL (35-150)
[2024-06-26 12:45] LABS: Vitamin D 25 Hydroxy (D3) 60.7 ng/mL (30.0-100.0)
[2024-06-26 12:46] LABS: HDL Cholesterol 135 mg/dL (40-60); LDL Cholesterol Calculated 100 mg/dL (<100)
[2024-06-27 10:09] LABS: Ionized Calcium 5.4 mg/dL (4.5-5.6)
== END ==
PROVIDERS: PCP Student in an Organized Health Care Education/Training Program; Referring Provider Family Medicine; Visit Provider Family Medicine
DX: Z87.81 Personal history of (healed) traumatic fracture (principal); M85.80 Other specified disorders of bone density and structure, unspecified site; K74.3 Primary biliary cirrhosis
CPT/HCPCS: 36415; 80061; 82306; 82330; 84100